=== PATIENT | female | born 1940 | race Two or more races ===

== ENCOUNTER 2022-11-22 15:02 | Emergency (ER) | payer OTHER ==
[~2022-11-22] VITALS: Ht 160 cm; Wt 66.7 kg
[2022-11-22] MEDS ORDERED: TENORMIN25 MG (15:30)
[2022-11-22] MEDS ORDERED: BACTRIM DS TAB1 EACH PO (18:37)
== END 2022-11-22 18:53 | disposition home or self-care (01) ==
LOC: ER 15:02
DX: N39.0 Urinary tract infection, site not specified (principal); Z88.0 Allergy status to penicillin